=== PATIENT | male | born 1990 | race Caucasian/White ===

== ENCOUNTER 2016-09-20 20:13 | Emergency (ER) | payer SELFPAY | END 2016-09-20 21:40 | disposition home or self-care (01) | LOC: FER 20:13 | DX: M54.5 Low back pain (principal); F17.210 Nicotine dependence, cigarettes, uncomplicated; Z88.0 Allergy status to penicillin; Z88.1 Allergy status to other antibiotic agents; Z88.2 Allergy status to sulfonamides | CPT/HCPCS: J1100; J1885 ==